=== PATIENT | female | born 1970 | race African-American/Black ===

== ENCOUNTER 2017-12-06 11:44 | Emergency (ER) | payer OTHER ==
[~2017-12-06] VITALS: Ht 154.9 cm; Wt 69.0 kg
[~2017-12-06 11:44] MED LIST: BENADRYL
[2017-12-06 12:30] VITALS: BP 122/70
== END 2017-12-06 15:44 | disposition left against medical advice (07) ==
LOC: ER 11:44
DX: R05 Cough (principal); J02.9 Acute pharyngitis, unspecified; R09.3 Abnormal sputum; F17.200 Nicotine dependence, unspecified, uncomplicated; F12.10 Cannabis abuse, uncomplicated
CPT/HCPCS: 99281